=== PATIENT | male | born 1995 | race Caucasian/White ===

== ENCOUNTER 2017-07-23 20:02 | Emergency (ER) | payer OTHER ==
[~2017-07-23] VITALS: Ht 180.3 cm; Wt 70.5 kg
[2017-07-23] MEDS ORDERED: MULTI-VITAMIN INFUSION INJ 10 ML, THIAMINE HCL INJ 100 MG, FoLIC ACID INJ 1 MG in SODIU... IV ONE (20:15)
[2017-07-23 20:22] VITALS: TEMP 36.7; Ht 180.3 cm; Wt 70.5 kg
--- NOTE | 2017-07-23 20:34 | DIAGNOSTIC IMAGING REPORT ---
SINGLE VIEW CHEST CLINICAL HISTORY: Overdose. Tachycardia. Change in mental status. FINDINGS: An AP, portable, upright chest radiograph is obtained. No prior studies are available for comparison at the time of dictation. The examination is degraded by portable technique and patient rotation. The cardiomediastinal silhouette is unremarkable. The lungs and pleural spaces are clear. No pneumothorax is seen. The bony thorax is grossly intact. IMPRESSION: No active disease in the chest. Electronically signed by: Neto Key M.D. 07/23/2017 8:32 PM Dictated Date/Time: 07/23/2017 8:32 PM
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
--- NOTE | 2017-07-23 21:13 | DIAGNOSTIC IMAGING REPORT ---
CT SCAN OF THE BRAIN WITHOUT IV CONTRAST CLINICAL HISTORY: Overdose. Change in mental status. COMPARISON STUDY: No priors. TECHNIQUE: Unenhanced axial CT scan of the brain is performed from the vertex to the skull base. A dose lowering technique was utilized adhering to the principles of ALARA. The vertex was scanned twice due to motion artifact. CT DOSE: 1781.37 mGy.cm FINDINGS: Brain parenchyma: The brain parenchyma is normal in appearance. There is no hemorrhage, mass effect, or evidence of acute territorial ischemia by CT criteria. Davis-white matter is preserved. No extra-axial fluid collection is seen. Ventricles, sulci, cisterns: Normal in configuration. Intracranial vasculature: The visualized intracranial vasculature at the skull base is normal in appearance. Calvarium: Unremarkable. Sinuses and mastoids: A tiny retention cyst is noted in the right maxillary antrum. The remaining visualized paranasal sinuses are clear. The mastoid air cells are well pneumatized. Orbits: The bony orbits are grossly intact. IMPRESSION: There is no hemorrhage, mass effect, or evidence of acute territorial ischemia by CT criteria. Electronically signed by: Neto Key M.D. 07/23/2017 9:12 PM Dictated Date/Time: 07/23/2017 9:10 PM
[2017-07-23 21:56] LABS: BASO % 0.5 %; BASO ABS # 0.03 K/uL (0-0.2); EOS % 5.3 %; EOS ABS # 0.32 K/uL (0-0.5); HEMATOCRIT 39.7 % (42-52); HEMOGLOBIN 13.7 g/dL (14.0-18.0); IG# 0.01 K/uL (0.00-0.02); LYMPH % 36.6 %; MEAN CELL VOLUME 90.6 fL (80-100); MEAN CORPUSCULAR HEMOGLOBIN 31.3 pg (25-34); MEAN CORPUSCULAR HGB CONC 34.5 g/dl (32-36); MEAN PLATELET VOLUME 8.9 fL (7.4-10.4); MONO % 6.7 %; NEUT % 50.7 %; NEUT ABS # 3.05 K/uL (1.4-6.5); PLATELET COUNT 214 K/uL (130-400); RED CELL DISTRIBUTION WIDTH CV 13.6 % (11.5-14.5); RED CELL DISTRIBUTION WIDTH SD 44.6 fL (36.4-46.3); WHITE BLOOD COUNT 6.01 K/uL (4.8-10.8)
[2017-07-23 22:13] LABS: PTT PATIENT 25.4 SECONDS (21.0-31.0)
[2017-07-23 22:15] LABS: ALBUMIN 3.6 gm/dl (3.4-5.0); ALT/SGPT 25 U/L (12-78); BLOOD UREA NITROGEN 15 mg/dl (7-18); CALCIUM 8.4 mg/dl (8.5-10.1); CARBON DIOXIDE 24 mmol/L (21-32); CREATININE 0.67 mg/dl (0.60-1.40); GLUCOSE 85 mg/dl (70-99); LIPASE 57 U/L (73-393); POTASSIUM 3.5 mmol/L (3.5-5.1); SODIUM 142 mmol/L (136-145)
[2017-07-23 22:24] LABS: ALKALINE PHOSPHATASE 62 U/L (45-117); AST/SGOT 20 U/L (15-37); TOTAL PROTEIN 6.8 gm/dl (6.4-8.2)
[2017-07-23] MEDS ORDERED: NICOTINE 21 MG/24 HR TDSY TD STA (22:27)
[2017-07-23] MEDS ORDERED: DiphenhydrAMINE HCL 50 MG/ML VIAL IV STA (22:41)
[2017-07-24 00:36] VITALS: BP 122/78; PULSE 91; O2SAT 98
== END 2017-07-24 00:58 | disposition home or self-care (01) ==
LOC: C.EDA 20:05
DX: F19.10 Other psychoactive substance abuse, uncomplicated (principal); T42.4X2A Poisoning by benzodiazepines, intentional self-harm, initial encounter; T50.992A Poisoning by other drugs, medicaments and biological substances, intentional self-harm, initial encounter; T51.0X2A Toxic effect of ethanol, intentional self-harm, initial encounter; S00.81XA Abrasion of other part of head, initial encounter; X58.XXXA Exposure to other specified factors, initial encounter